=== PATIENT | male | born 1965 | race Caucasian/White ===

== ENCOUNTER → 2024-03-25 10:49 | Outpatient (REF) | payer OTHER, SELFPAY | LOC: HWRAD 10:49 | PROVIDERS: ATTENDING PHYSICIAN Urology; FAMILY PHYSICIAN Family Medicine | DX: N50.819 Testicular pain, unspecified (principal) | CPT/HCPCS: 76870; 93976 ==

== ENCOUNTER → 2024-08-02 08:06 | Outpatient (REF) | payer OTHER, SELFPAY | LOC: RAD 08:06 | PROVIDERS: ATTENDING PHYSICIAN Internal Medicine Cardiovascular Disease; FAMILY PHYSICIAN Family Medicine | DX: R42 Dizziness and giddiness (principal) | CPT/HCPCS: 93880 ==

== ENCOUNTER → 2024-08-02 13:20 | Outpatient (REF) | payer SELFPAY | LOC: HWRAD 13:20 | PROVIDERS: ATTENDING PHYSICIAN Internal Medicine Cardiovascular Disease; FAMILY PHYSICIAN Family Medicine | DX: E78.2 Mixed hyperlipidemia (principal) | CPT/HCPCS: 75571 ==

== ENCOUNTER → 2024-08-11 09:05 | Outpatient (REF) | payer OTHER, SELFPAY | LOC: RCS 09:05 | PROVIDERS: ATTENDING PHYSICIAN Internal Medicine Cardiovascular Disease; FAMILY PHYSICIAN Family Medicine | DX: I10 Essential (primary) hypertension (principal); R06.02 Shortness of breath | CPT/HCPCS: 93306 ==

== ENCOUNTER → 2024-11-29 08:58 | Outpatient (REF) | payer OTHER, SELFPAY | LOC: RCS 08:58 | PROVIDERS: ATTENDING PHYSICIAN Internal Medicine Cardiovascular Disease; FAMILY PHYSICIAN Family Medicine | DX: R06.02 Shortness of breath (principal) | CPT/HCPCS: 93017 ==

== ENCOUNTER → 2024-12-02 14:18 | Outpatient (REF) | payer OTHER, SELFPAY | LOC: DHSLP 14:18 | PROVIDERS: ATTENDING PHYSICIAN Internal Medicine Cardiovascular Disease; FAMILY PHYSICIAN Family Medicine | DX: G47.33 Obstructive sleep apnea (adult) (pediatric) (principal) | CPT/HCPCS: 95800 ==